=== PATIENT | female | born 1965 | race Caucasian/White ===

== ENCOUNTER 2023-03-18 01:32 | Emergency (ER) | payer MEDICAID ==
[2023-03-18] MEDS ORDERED: Ondansetron 4 MG Tab.DIS PO ONE (01:41)
[2023-03-18 02:16] LABS: BASOPHILS ABSOLUTE AUTO 0.04 K/uL (0.00-0.20); BASOPHILS PERCENT AUTO 0.5 % (0.0-1.0); EOSINOPHILS ABSOLUTE AUTO 0.04 K/uL (0.00-0.45); EOSINOPHILS PERCENT AUTO 0.5 % (0.0-6.0); HEMOGLOBIN 14.5 g/dL (12.0-16.0); IMMATURE GRAN ABSOLUTE AUTO 0.04 K/uL (0.00-0.05); IMMATURE GRAN PERCENT AUTO 0.5 % (0.0-0.4); LYMPHOCYTES PERCENT AUTO 19.9 % (24.0-44.0); MEAN CORPUSCULAR HEMOGLOBIN 29.6 pg (28.0-32.0); MEAN CORPUSCULAR HGB CONC 34.5 g/dL (32.0-36.0); MEAN CORPUSCULAR VOLUME 85.7 fL (83.0-99.0); MEAN PLATELET VOLUME 10.6 fL (9.4-12.3); MONOCYTES ABSOLUTE AUTO 0.65 K/uL (0.00-0.80); MONOCYTES PERCENT AUTO 7.6 % (0.0-8.0); NEUTROPHILS ABSOLUTE AUTO 6.06 K/uL (1.80-7.70); PLATELET COUNT,PLT 221 K/uL (150-400); WHITE BLOOD CELL COUNT,WBC 8.53 K/uL (3.9-11.3)
[2023-03-18] MEDS ORDERED: Sodium Chloride 0.9% 1,000 ML IV ONE (02:22)
[2023-03-18] MEDS ORDERED: Sodium Chloride 0.9% 10 ML Syringe FLUSH PRN (02:22)
[2023-03-18] MEDS ORDERED: Sodium Chloride 0.9% 2.5 ML Syringe FLUSH PRN (02:22)
[2023-03-18] MEDS ORDERED: Prochlorperazine 10 MG/2 ML SDV IVPUSH ONE (02:23)
[2023-03-18] MEDS ORDERED: diphenhydrAMINE 50 MG/ML SDV IVPUSH ONE (02:23)
[2023-03-18 02:40] LABS: A/G RATIO 1.2 (0.9-1.6); BILIRUBIN TOTAL 0.4 mg/dL (0.2-1.0); CALCIUM 9.5 mg/dL (8.5-10.1); CARBON DIOXIDE,CO2 25.5 mmol/L (21.0-32.0); CREATININE 0.8 mg/dL (0.6-1.0); EST CRCL DRUG DOSING (CG) 66.19 mL/min; PROTEIN TOTAL,TP 7.3 g/dL (6.4-8.2)
[2023-03-18 04:19] LABS: AMPHETAMINES SCREEN, URINE PRESUMPTIVE POSITIVE (CUTOFF=500); BARBITURATE SCREEN,URINE NEGATIVE (CUTOFF=200); BENZODIAZEPINES SCREEN,URINE NEGATIVE (CUTOFF=150); BUPRENORPHINE SCREEN,URINE NEGATIVE (CUTOFF=10); METHADONE SCREEN, URINE NEGATIVE (CUTOFF=200); METHAMPHETAMINES SCREEN, URINE NEGATIVE (CUTOFF=500); OXYCODONE SCREEN,URINE NEGATIVE (CUT0FF=100); PCP SCREEN,URINE NEGATIVE (CUTOFF=25); PROPOXYPHENE SCREEN,URINE NEGATIVE (CUTOFF=300); THC SCREEN,URINE 20 NG/ML PRESUMPTIVE POSITIVE (CUTOFF=50)
[2023-03-18 04:32] LABS: APPEARANCE,URINE CLEAR; BILIRUBIN,URINE NEGATIVE (NEGATIVE); COLOR,URINE YELLOW; GLUCOSE,URINE NEGATIVE (NEGATIVE); KETONES,URINE 40 mg/dL (NEGATIVE); LEUKOCYTE ESTERASE,URINE NEGATIVE (NEGATIVE); NITRITE,URINE NEGATIVE (NEGATIVE); OCCULT BLOOD,URINE NEGATIVE (NEGATIVE); PH,URINE 5.5 (5.0-8.0); PROTEIN,URINE NEGATIVE (NEGATIVE); UROBILINOGEN,URINE 0.2 EU/dL (<2.0)
== END 2023-03-18 06:37 | disposition home or self-care (01) ==
LOC: MW.ED 01:32
DX: T40.721A Poisoning by synthetic cannabinoids, accidental (unintentional), initial encounter (principal); F12.129 Cannabis abuse with intoxication, unspecified; F12.188 Cannabis abuse with other cannabis-induced disorder
CPT/HCPCS: 36415; 80053; 80305; 80307; 81003; 83690; 85025; 96361; 96374; 96375; 99284; A9270; J0780; J1200; J3490; J7030

== ENCOUNTER 2025-01-24 22:30 | Emergency (ER) | payer OTHER ==
[2025-01-25] MEDS: Amoxicillin/Clavulanate K 875-125 MG Tab PO ONE (02:48)
== END 2025-01-25 02:55 | disposition home or self-care (01) ==
LOC: MW.ED 22:30
DX: M79.89 Other specified soft tissue disorders (principal); Z79.899 Other long term (current) drug therapy; W55.01XA Bitten by cat, initial encounter
CPT/HCPCS: 99283; A9270